=== PATIENT | male | born 1985 | race Caucasian/White ===

== ENCOUNTER 2019-02-20 11:14 | Emergency (ER) | payer OTHER ==
[2019-02-20 11:47] VITALS: BP 140/89
--- NOTE | 2019-02-20 13:28 | RADIOLOGY REPORT (SQ) ---
EXAM DESCRIPTION: U/S NON-OB PELVIS W/O DOP COMPLETED DATE/TIME: 02/20/2019 1:07 pm REASON FOR STUDY: eval for inguinal hernia L side COMPARISON: None. TECHNIQUE: Dynamic and static grayscale images acquired of the left groin were obtained and recorded on PACS. Additional selected color Doppler images recorded. LIMITATIONS: None. FINDINGS: The palpable lump in the left groin corresponds to a hernia sac that contains loops of bow el ; the maximum transverse diameter of the hernia sac with Valsalva maneuvers is 3 cm. IMPRESSION: Left inguinal hernia that contains a loop of bowel. TECHNICAL DOCUMENTATION: JOB ID: [id number] [employer]- All Rights Reserved Rev Reading location - IP/workstation name: [email or web address]
--- NOTE | 2019-02-20 13:52 | ER Document Report ---
HPI - HPI Time Seen by Provider: 02/20/19 12:26 Pain Level: 3 Notes: Patient is an otherwise healthy 34-year-old male presenting to the emergency department with concern for possible hernia. 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 He states he first noticed this a few days ago. He reports moderate pain to the area. Past Medical History - General Information source: Patient - Social History Smoking Status: Never Smoker Chew tobacco use (# tins/day): No Frequency of alcohol use: None Drug Abuse: None Family History: Reviewed & Not Pertinent Patient has suicidal ideation: No Patient has homicidal ideation: No - Medical History Medical History: Negative Surgical Hx: Negative - Immunizations Immunizations up to date: Yes Vertical Provider Document - CONSTITUTIONAL Notes: PHYSICAL EXAMINATION: GENERAL: Well-appearing, well-nourished and in no acute distress. HEAD: Atraumatic, normocephalic. EYES: Pupils equal round and reactive to light, extraocular movements intact, sclera anicteric, conjunctiva are normal. ENT: Nares patent, oropharynx clear without exudates. Moist mucous membranes. NECK: Normal range of motion, supple without lymphadenopathy LUNGS: Breath sounds clear to auscultation bilaterally and equal. No wheezes rales or rhonchi. HEART: Regular rate and rhythm without murmurs ABDOMEN: Soft, nontender, nondistended abdomen. No guarding, no rebound. No masses appreciated. Genitourinary: Palpable inguinal mass left side. Reducible. Musculoskeletal: Normal range of motion, no pitting or edema. No cyanosis. NEUROLOGICAL: Cranial nerves grossly intact. Normal speech, normal gait. Normal sensory, motor exams PSYCH: Normal mood, normal affect. SKIN: Warm, Dry, normal turgor, no rashes or lesions noted. - INFECTION CONTROL TRAVEL OUTSIDE OF THE [place] IN LAST 30 DAYS: No Course - Re-evaluation Re-evalutation: Pelvis Ultrasound 02/20/19 12:27 IMPRESSION: Left inguinal hernia that contains a loop of bowel. - Vital Signs Vital signs: Temp Pulse Resp BP Pulse Ox 97.7 F 69 18 140/89 H 98 02/20/19 11:46 02/20/19 11:46 02/20/19 11:46 02/20/19 11:46 02/20/19 11:46 Discharge - Discharge Clinical Impression: Inguinal hernia of left side without obstruction or gangrene Condition: Stable Disposition: HOME, SELF-CARE Additional Instructions: Hernia You have a hernia. A hernia forms at a weak spot in the abdominal wall. Bowel slips out of the abdominal cavity into the weak spot. Hernias tend to occur in the groin (especially in males), the fold of the thigh, the naval, or at a surgical scar. Surgical repair of the defect is usually necessary. The problem tends to get worse. It's important that you follow up as recommended. For now, you should avoid straining, heavy lifting, and vigorous exercise. Complications occur if the hernia becomes tightly stuck. You should come back immediately if the area becomes increasingly painful, swollen, or discolored, or if you develop abdominal pain and vomiting. Follow-up with surgery or return to the ER with worsening symptoms as outlined above. Referrals: RUDDY GLOVER MD [ACTIVE STAFF] - Follow up as needed
== END 2019-02-20 14:01 | disposition home or self-care (01) ==
LOC: ER 11:14
DX: K40.90 Unilateral inguinal hernia, without obstruction or gangrene, not specified as recurrent (principal)
CPT/HCPCS: 76856; 99283

== ENCOUNTER 2019-03-17 05:57 | Day surgery (SDC) | payer OTHER ==
[2019-03-10 11:34] LABS: ANION GAP 13 (5-19); BLOOD UREA NITROGEN 11 mg/dL (7-20); CALCIUM 10.4 mg/dL (8.4-10.2); CARBON DIOXIDE 26 mmol/L (22-30); CHLORIDE 102 mmol/L (98-107); GLUCOSE 100 mg/dL (75-110); POTASSIUM 4.4 mmol/L (3.6-5.0)
[~2019-03-17 05:57] MED LIST: CEFAZOLIN INJ 1 GM VIAL ONE; CEFAZOLIN SODIUM 1 GM in DEXTROSE 5%-WATER 50 ML IV SCH
[2019-03-17] MEDS ORDERED: PROPOFOL INJ 200 MG/20 ML VIAL IV ONE (07:20)
[2019-03-17] MEDS ORDERED: MIDAZOLAM 2 MG/2 ML INJ ONE (07:20)
[2019-03-17] MEDS ORDERED: FENTANYL CITRATE INJ/PF 100 MCG/2 ML AMPUL ONE (07:20)
[2019-03-17] MEDS ORDERED: BUPIVACAINE HCL 0.25 % INJ/PF (2.5 MG/1 ML) 30 ML VIAL ONE (07:50)
[2019-03-17] MEDS ORDERED: FENTANYL CITRATE INJ/PF 100 MCG/2 ML AMPUL IV PRN ×3 (08:18)
[2019-03-17] MEDS ORDERED: ONDANSETRON HCL INJ/PF 4 MG/2 ML SDV IV PRN (08:18)
[2019-03-17] MEDS ORDERED: PROMETHAZINE HCL INJ 25 MG/1 ML VIAL IV PRN (08:18)
[2019-03-17] MEDS ORDERED: DIPHENHYDRAMINE HCL 50 MG/ML VIAL IV PRN (08:18)
[2019-03-17] MEDS ORDERED: MEPERIDINE HCL/PF INJ 25 MG/1 ML DISP.SYRIN IV PRN (08:18)
[2019-03-17] MEDS ORDERED: MORPHINE SULFATE 10 MG/ML INJ IV PRN (08:18)
[2019-03-17] MEDS ORDERED: OXYCODONE-ACETAMINOPHEN 5-325 MG TABLET PO PRN ×2 (08:18)
[2019-03-17] MEDS: BUPIVACAINE INJ/PF LIPOSOME/PF 266 MG/20 ML SDV ONE ×2 (09:12→09:19)
--- NOTE | 2019-03-17 09:42 | Operative Report ---
Nonrecallable Operative Report DATE OF SURGERY: 03/17/19 PREOPERATIVE DIAGNOSIS: left inguinal hernia POSTOPERATIVE DIAGNOSIS: left inguinall hernia OPERATION: Laparoscopic left inguinal hernia repair SURGEON: SOLEDAD RAMSEY ANESTHESIA: GA TISSUE REMOVED OR ALTERED: None COMPLICATIONS: None ESTIMATED BLOOD LOSS: 15 cc INTRAOPERATIVE FINDINGS: See dictation PROCEDURE: Procedure after appropriate timeout and site verification the abdomen was prepped and draped in usual sterile fashion. A curvilinear infraumbilical incision was made with a 15 blade and dissection was carried down through subcutaneous tissue with Bovie cautery the anterior rectus fascia was identified it was opened with a 15 blade transversely for about 2 cm The rectus muscle was retracted laterally and the posterior sheath came into view we then placed the Spacemaker balloon on top of the posterior sheath and slid down to the pubic tubercle it was then insufflated under direct vision creating a space. The Spacemaker balloon was removed and the working port was placed on top of the posterior sheath. 2 5 mm ports were then placed under direct vision in the midline. Attention was then turned in the left side the peritoneum was dissected away from the transversalis fascia laterally and this was continued inferiorly until we identified the cord structures there was a sac there was noted to be exiting the internal ring and this was dissected away from the cord structures and posterior lysed We then identified the iliac veins we identified Chalino's ligament weaned and and then identified the rectus muscle. We then used a piece of 3 x 6 polypropylene mesh with a slit cut down the side placed into the retroperitoneum fixed posteriorly to the Chalino's ligament anterior to the rectus muscle and laterally to the transversalis muscle being careful not to injure the lateral femoral cutaneous nerve I wrapped the cord with the piece of mesh and make sure that there was no space on the lateral side of the slit in the mesh that would allow reherniation. Attention was then turned to the right side we examined the right side I dissected the peritoneum off the transversalis muscle laterally and traced that to the cord structures there was peritoneum that was fixed to itself on the proximal portion of the cord but it did not extend into the internal ring therefore he did not have a indirect inguinal hernia we also examined the hasselbachs triangle and noted no evidence of a direct inguinal hernia The pneumoretroperitoneum was reduced allowing the peritoneum to come up against the mesh the ports were removed the fascial defect at the umbilical port site was closed with a [id number] placed 0 Vicryl suture and then all 3 skin incisions were closed with intracuticular 4-0 Biosyn Steri-Strips completed the procedure estimated blood loss was less than 15 cc sponge needle counts were correct x2 the patient was awakened in the operating extubated transferred recovery in stable condition no complications
--- NOTE | 2019-03-17 09:44 | Discharge Summary ---
Discharge Summary (SDC) - Discharge Final Diagnosis: Left inguinal hernia Date of Surgery: 03/17/19 Discharge Date: 03/17/19 Condition: Good Discharge Diet: As Tolerated Discharge Activity: Activity As Tolerated - Good, No Lifting Over 10 Pounds Report the Following to Your Physician Immediately: Shortness of Breath, Nausea, Vomiting - Yes she did she was still here she does using it on the way out when she was eating 1, Unusual Bleeding - Patient is a follow-up in surgical clinic in 2 to 3 weeks
[2019-03-17 14:44] VITALS: BP 134/88
[2019-03-17] MEDS ORDERED: DEXAMETHASONE SOD PHOSPHATE INJ 4 MG/1 ML VIAL ONE (15:02)
[2019-03-17] MEDS ORDERED: ROCURONIUM BROMIDE INJ 50 MG/5 ML VIAL IV ONE (15:02)
[2019-03-17] MEDS ORDERED: KETOROLAC TROMETHAMINE 60 MG/2 ML SDV ONE (15:02)
[2019-03-17] MEDS ORDERED: ONDANSETRON HCL INJ/PF 4 MG/2 ML SDV ONE (15:02)
[2019-03-17] MEDS ORDERED: SUCCINYLCHOLINE CHLORIDE INJ 200 MG/10 ML VIAL ONE (15:02)
== END 2019-03-17 11:50 | disposition home or self-care (01) ==
LOC: OROUT 05:57
PROVIDERS: ATTEND Surgery
DX: K40.10 Bilateral inguinal hernia, with gangrene, not specified as recurrent (principal); Z88.0 Allergy status to penicillin
CPT/HCPCS: 36415; 80048; 49650; C1781; C1713; J2250; J0690; J3490; J1100; J1885; J3010; J0330; J2405; J2704; C9290; 840